=== PATIENT | male | born 1990 | race Caucasian/White ===

== ENCOUNTER 2023-04-14 14:08 | Emergency (ER) | payer OTHER, SELFPAY ==
--- NOTE | 2023-04-14 | ECG_ITS ---
Test Reason : chest pain Blood Pressure : / mmHG Vent. Rate : 139 BPM Atrial Rate : 139 BPM P-R Int : 130 ms QRS Dur : 074 ms QT Int : 304 ms P-R-T Axes : 082 077 067 degrees QTc Int : 462 ms Sinus tachycardia Possible Left atrial enlargement Nonspecific ST abnormality Abnormal ECG When compared with ECG of 14-APR-2023 16:39, No significant change was found Referred By: Sena Cano Electronically Signed By:James Lyons
--- NOTE | ~2023-04-14 | CT_ITS ---
EXAMINATION: CT HEAD WITHOUT CONTRAST CT CERVICAL SPINE WITHOUT CONTRAST CLINICAL INFORMATION: Fall. Head strike. EtOH. COMPARISON: None available. TECHNIQUE: Contiguous axial imaging was performed from the skull base to vertex without intravenous administration of contrast. Contiguous axial imaging was performed from the upper chest through the skull base without intravenous administration of contrast. Coronal and sagittal reformats were obtained at the acquisition workstation. This CT examination was performed using dose optimization techniques as appropriate, variously including the following: *Automated exposure control. *Adjustment of mA and/or kV according to patient size (this includes techniques or standardized protocols for targeted exams where dose is matched to indication/reason for exam; i.e. extremities or head). *Use of iterative reconstruction technique. DLP: 1083 mGy-cm FINDINGS: Head: There is no evidence of acute intracranial hemorrhage or edematous territorial infarction. Conner-white matter differentiation is preserved. There is no abnormal attenuation within the brain parenchyma. The ventricles are normal in morphology and size. No evidence for obstructive hydrocephalus. No abnormal mass effect or midline shift. No extra-axial fluid collections. No acute soft tissue or osseous abnormalities. Mild mucosal thickening of the paranasal sinuses. The mastoid air cells and middle ear cavities are clear. Cervical Spine: The atlantooccipital and atlantoaxial articulations remain well aligned. Straightening of the normal cervical lordosis. Otherwise, there is anatomic alignment of the vertebral bodies and posterior elements. No evidence of acute fracture or subluxation. The vertebral body heights are maintained. Moderate degenerative disc disease at C5-C6 and C6-C7. Mild degenerative disc disease at all additional levels. Facet and uncovertebral joint arthropathy leads to osseous encroachment on the neural foramina at C5-C6. There is no prevertebral soft tissue swelling. The thyroid gland and remaining cervical soft tissues are within normal limits. The lung apices demonstrate no abnormalities. CT/CT cervical spine wo IV con IMPRESSION: 1. No evidence of acute intracranial hemorrhage or edematous territorial infarction. 2. No evidence of acute fracture or traumatic subluxation of the cervical spine. 3. 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
[2023-04-14 14:22] VITALS: BP 160/92; PULSE 101; O2SAT 98
[2023-04-14 14:32] VITALS: BP 134/69; PULSE 129; RESP 16; TEMP 36.6; O2SAT 98; BMI 21.6
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
[2023-04-14 15:26] VITALS: BP 149/61; PULSE 131; RESP 18; TEMP 36.7; O2SAT 97
--- NOTE | 2023-04-14 15:49 | ECG_ITS ---
Test Reason : ETOH Blood Pressure : / mmHG Vent. Rate : 132 BPM Atrial Rate : 132 BPM P-R Int : 122 ms QRS Dur : 078 ms QT Int : 306 ms P-R-T Axes : 079 073 068 degrees QTc Int : 453 ms Sinus tachycardia Right atrial enlargement Borderline ECG No previous ECGs available Referred By: Sena Cano Electronically Signed By:James Lyons
--- NOTE | 2023-04-14 17:50 | PC.NURSE ---
patient refusing lab work to pct. ambulating with strong steady gait from bathroom, refusing urine sample at this time
--- NOTE | 2023-04-14 18:53 | MHC.EDTECH ---
Patient given dinner tray
[2023-04-14 19:25] LABS: Basophils Percent Auto 0.2 % (0-2); Hematocrit 44.7 % (42.0-52.0); Hemoglobin 15.2 g/dl (14.0-18.0); Imm Gran Abs Auto 0.06 X10*3/uL (0.00-0.03); Imm Gran Pct Auto 0.4 % (0.0-0.4); Lymphocytes Percent Auto 5.9 % (20-40); MANUAL DIFF FLAG SCAN; Mean Corpuscular Hemoglobin 31.7 pg (27.0-33.0); Mean Corpuscular Volume 93.3 fL (80.0-98.0); Mean Platelet Volume 9.9 fL (9.4-12.4); Monocytes Absolute Auto 0.4 X10*3/uL (0.1-1.2); Monocytes Percent Auto 2.6 % (2-11); Neutrophils Absolute Auto 15.2 x10*3/uL (2.0-8.3); Neutrophils Percent Auto 90.9 % (45-73); Platelet Count 187 X10*3/uL (160-400); Red Blood Count 4.79 X10*6/uL (4.60-5.80); Red Cell Distribution Width 12.9 % (11.0-16.0); SCAN SMEAR FLAG 1; White Blood Count 16.7 X10*3/uL (4.8-10.8)
--- NOTE | 2023-04-14 19:25 | PC.NURSE ---
Assumed care of pt. Pt lying on stretcher, argumentative but agreeing to cooperate with labs at this time. No other acute medical or behavioral concerns at this time.
[2023-04-14 19:40] LABS: Alanine Aminotransferase 31 U/L (0-40); Albumin Level 4.9 g/dL (3.5-5.0); Alkaline Phosphatase 76 U/L (39-117); Anion Gap 38 (12-20); Aspartate Amino Transferase 59 U/L (5-37); Bilirubin Direct 0.3 mg/dL (0.0-0.5); Bilirubin Total 0.5 mg/dL (0.0-1.0); Blood Urea Nitrogen 13 mg/dL (9-16); Calcium 9.1 mg/dL (8.4-10.2); Carbon Dioxide 12 mmol/L (22-29); Chloride 99 mmol/L (96-108); Estimated Glomerular Filt Rate > 60; Ethanol 268 mg/dL; Glucose Random 135 mg/dL (60-115); Lipase 20 U/L (8-78); Magnesium 1.9 mg/dL (1.6-2.6); Potassium 3.8 mmol/L (3.3-5.1); Sodium 145 mmol/L (135-145); Total Protein 7.5 g/dL (6.5-8.0)
[2023-04-14 19:48] LABS: SLIDE REVIEW VERIFIED
--- NOTE | 2023-04-14 20:21 | MHC.EDTECH ---
pt pleasant and agrees to labs, labs drawn pt given dinner tray.Ambulates to bathroom independently
[2023-04-14] MEDS: Thiamine HCL 100 MG in 0.9 % Sodium Chloride 100 ML 202 MG IV (20:45)
[2023-04-14] MEDS: Nicotine 21 MG PATCH.TD24 TRANSDERMA (20:45)
[2023-04-14] MEDS: Famotidine/PF 20 MG/2 ML VIAL IVPUSH (20:46)
[2023-04-14] MEDS: ondansetron HCL 4 MG/2 ML VIAL IVPUSH (20:47)
[2023-04-14] MEDS: Dextrose 5 % and 0.9 % NaCl 1,000 ML 999 ML IVCONT ×2 (20:48→21:37)
[2023-04-14] MEDS: LORazepam 2 MG/ML VIAL IVPUSH (21:36)
[2023-04-14 21:52] LABS: Troponin-I High Sensitivity 6.6 ng/L (<3.5-35.0)
[2023-04-14 22:37] LABS: Amphetamine Screen Urine Not Detected (Not Detect); Barbiturates, Urine Not Detected (Not Detect); Benzodiazepines Screen Urine Not Detected (Not Detect); Cannabinoid Screen Urine Not Detected (Not Detect); Cocaine Screen Urine Not Detected (Not Detect); Fentanyl, urine Not Detected (Not Detect); Opiate Screen Urine Not Detected (Not Detect); Phencyclidine Screen Urine Not Detected (Not Detect)
[2023-04-15 00:39] LABS: Lactic Acid 11.2 mmol/L (0.5-2.0)
[2023-04-15 00:41] LABS: Anion Gap 22 (12-20); Blood Urea Nitrogen 10 mg/dL (9-16); Calcium 7.7 mg/dL (8.4-10.2); Carbon Dioxide 14 mmol/L (22-29); Chloride 108 mmol/L (96-108); Glucose Random 170 mg/dL (60-115); Potassium 4.3 mmol/L (3.3-5.1); Sodium 140 mmol/L (135-145)
[2023-04-15 00:56] LABS: Creatinine Clr Calc Pharmacy 111.1; Estimated Glomerular Filt Rate > 60
[2023-04-15 00:59] VITALS: BP 123/55; PULSE 118; RESP 20; TEMP 37.3; O2SAT 96
[2023-04-15 01:14] LABS: Beta-Hydroxybutyrate 1.45 mmol/L (0.02-0.27)
[2023-04-15] MEDS: Dextrose 5 % and 0.9 % NaCl 1,000 ML 999 ML IVCONT (01:15)
[2023-04-15 01:20] LABS: Venous Blood Gas Refer to POC result
[2023-04-15 01:23] LABS: VBG Base Excess -8.2 mmol/L; VBG HCO3 15 mmol/L (22-26); VBG pCO2 26 mmHg; VBG pH 7.36 (7.32-7.43); VBG pO2 76 mmHg
--- NOTE | 2023-04-15 01:57 | PM.EVENT ---
Event Note Date of Service: 04/15/23 Event Note: Was asked to evaluate this patient with alcohol use disorder. Labs concerning for alcoholics/starvation ketoacidosis and lactic acidosis upon arrival. He was resuscitated with crystalloids during ER stay. Upon evaluation, patient stated that he does not want to stay in the hospital and would like to leave against medical advice. Discussed risks of leaving against medical advice including . He understands. Time Spent With Patient Time: Total time managing care of this patient today ____ minutes.
[2023-04-15 02:20] LABS: Reflex Lactate? Lactic Acid Added
--- NOTE | 2023-04-15 02:29 | PC.NURSE ---
AMA form signed per pt
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
== END 2023-04-15 02:30 | disposition left against medical advice (07) ==
PROVIDERS: Nurse Practitioner Family; Physician Assistant; Emergency Provider Emergency Medicine
DX: F10.220 Alcohol dependence with intoxication, uncomplicated (principal); Y90.8 Blood alcohol level of 240 mg/100 ml or more; S09.90XA Unspecified injury of head, initial encounter; S01.81XA Laceration without foreign body of other part of head, initial encounter; W01.198A Fall on same level from slipping, tripping and stumbling with subsequent striking against other object, initial encounter; R00.0 Tachycardia, unspecified; E86.0 Dehydration; E87.20 Acidosis, unspecified; R74.02 Elevation of levels of lactic acid dehydrogenase [LDH]; Y93.9 Activity, unspecified; Y92.000 Kitchen of unspecified non-institutional (private) residence as the place of occurrence of the external cause; Y99.9 Unspecified external cause status
CPT/HCPCS: 12002; 12013; 36415; 70450; 72125; 80048; 80076; 80307; 82010; 82550; 82803; 83605; 83690; 83735; 84484; 85025; 92950; 93005; 96365; 96367; 96375; 99284; J2060; J2405; J3411

== ENCOUNTER → 2023-04-14 15:49 | Outpatient (BNV) | payer OTHER, SELFPAY | PROVIDERS: Emergency Provider Emergency Medicine; Visit Provider Internal Medicine Cardiovascular Disease | DX: R00.0 Tachycardia, unspecified (principal); R94.31 Abnormal electrocardiogram [ECG] [EKG] | CPT/HCPCS: 93010 ==